=== PATIENT | female | born 1945 | race Caucasian/White ===

== ENCOUNTER 2020-04-21 07:05 | Observation (INO) ==
[2020-04-21 07:56] LABS: Basophils # 0.1 K/mcL (0.0-0.2); Basophils % 0.5 %; Eosinophils # 0.1 K/mcL (0.0-0.6); Eosinophils % 1.1 %; Hematocrit 46.8 % (35.3-44.9); Hemoglobin 14.4 g/dL (11.5-15.4); Immature Granulocytes % 0.6 % (0-4); Lymphocytes # 1.3 K/mcL (0.6-4.6); Lymphocytes % 10.3 %; Mean Corpuscular HGB Conc 30.8 g/dL (31.6-35.5); Mean Corpuscular Hemoglobin 28.6 pg (28.0-33.3); Mean Corpuscular Volume 92.9 fL (83.0-100.0); Mean Platelet Volume 12.4 fL (9.4-12.4); Monocytes # 0.8 K/mcL (0.0-1.3); Neutrophils # 10.5 K/mcL (1.6-8.9); Platelet Count 196 K/mcL (140-400); Red Blood Count 5.04 M/mcL (3.82-4.97); Red Cell Distribution Width 14.4 % (11.5-14.5); Segmented Neutrophils % 81.5 %; White Blood Count 12.9 K/mcL (4.3-11.1)
[2020-04-21 07:57] LABS: Prothrombin Time 11.2 Seconds (9.4-12.1)
[2020-04-21 08:00] LABS: Activated Partial Thrombo Time 29.7 Seconds (26.0-36.0)
[2020-04-21 08:14] LABS: Bilirubin,Urine Negative (Negative); Blood,Urine Negative (Negative); Color,Urine Yellow (Yellow); Glucose,Urine (UA) Normal (Normal); Ketones,Urine Negative (Negative); Leukocyte Esterase,Urine Negative (Negative); Nitrite,Urine Negative (Negative); PH,Urine 6.5 pH Units (5.0-8.0); Protein,Urine 30 mg/dL (Neg-Trace); Specific Gravity,Urine 1.021 (1.010-1.025); Urobilinogen,Urine Normal (Normal)
[2020-04-21 08:17] LABS: Bacteria,Urine None Seen per hpf (None-Few); Hyaline Casts,Urine None Seen per lpf (None-Few); RBC,Urine 0-3 per hpf (0-3); Squamous Epithelial Cell,Urine Moderate per lpf (None-Few); WBC,Urine 0-3 per hpf (0-3)
[2020-04-21 08:18] LABS: Clarity,Urine Clear (Clear)
[2020-04-21 08:24] LABS: Amphetamine Screen,Urine Negative ng/mL (Cutoff=1000); Barbiturate Screen,Urine Negative ng/mL (Cutoff=200); Benzodiazepines Screen,Urine Positive ng/mL (Cutoff=200); Cannabinoid Screen,Urine Negative ng/mL (Cutoff = 50); Cocaine Screen,Urine Negative ng/mL (Cutoff= 300); Opiate Screen,Urine Negative ng/mL (Cutoff=300); Phencyclidine Screen,Urine Negative ng/mL (Cutoff=25)
[2020-04-21 08:29] LABS: Ethanol < 10 mg/dL (Less than 10); Troponin I 0.03 ng/mL (< 0.04)
[2020-04-21 09:10] LABS: ABG Base Excess 0 mEq/L (-2 to 3); ABG HCO3 25 mEq/L (21-27); ABG Oxygen Saturation 94 % (95-98); ABG PCO2 39 mmHg (35-45); ABG PH 7.41 pH Units (7.32-7.45); ABG PO2 70 mmHg (85-104); ABG TCO2 26 mEq/L (20-26)
[2020-04-21 09:14] LABS: Alanine Aminotransferase 52 Units/L (7-52); Albumin 3.9 g/dL (3.5-5.7); Albumin/Globulin Ratio 1.5 (1.1-2.2); Alkaline Phosphatase 48 Units/L (34-104); Aspartate Amino Transferase 23 Units/L (13-39); BUN/Creatinine Ratio 28 (6-26); Bilirubin,Direct 0.2 mg/dL (0.0-0.2); Bilirubin,Indirect 0.6 mg/dL (0.0-1.0); Bilirubin,Total 0.8 mg/dL (0.3-1.0); Blood Urea Nitrogen 16 mg/dL (8-23); Calcium 8.7 mg/dL (8.6-10.3); Carbon Dioxide 24 mEq/L (23-29); Chloride 110 mEq/L (98-107); Globulin 2.6 g/dL (2.4-3.5); Glucose 140 mg/dL (70-105); Osmolality,Calculated 293 (280-300); Potassium 4.1 mEq/L (3.5-5.1); Sodium 140 mEq/L (136-145); Total Protein 6.5 g/dL (6.4-8.9); eGFR For African Americans > 60 (> 60); eGFR For Non-African Americans > 60 (> 60)
[2020-04-21] MEDS ORDERED: Furosemide 40 MG/4 ML VIAL IVP ONE (09:21)
[2020-04-21] MEDS ORDERED: Naloxone 0.4 MG/ML INJ IVP PRN (10:05)
[2020-04-21] MEDS ORDERED: levETIRAcetam 1,000 MG in 0.9 % Sodium Chloride 100 ML IVPB ONE (10:10)
[2020-04-21] MEDS ORDERED: Gadolinium Contrast Agent (WT Based) IV PRN (10:52)
[2020-04-21] MEDS ORDERED: *HR* LORazepam 2 MG/ML VIAL ONE (11:04)
[2020-04-21] MEDS ORDERED: Acetaminophen 325 MG TABLET PO PRN (11:42)
[2020-04-21] MEDS ORDERED: *HR* LORazepam 2 MG/ML VIAL IVP ONE (11:49)
[2020-04-21] MEDS ORDERED: *HR* LORazepam 2 MG/ML VIAL IVP PRN (13:11)
[2020-04-21] MEDS ORDERED: *HR* Heparin 5,000 UNIT/ML VIAL SQ SCH (14:00)
[2020-04-21] MEDS ORDERED: Ibuprofen 600 MG TABLET PO PRN (20:12)
[2020-04-21] MEDS ORDERED: ALPRAZolam 0.25 MG TABLET PO PRN (20:12)
[2020-04-21] MEDS: Carbidopa/Levodopa 25/100 TABLET PO SCH (20:58)
[2020-04-21] MEDS ORDERED: NON-FORMULARY MEDICATION 1 EACH EACH (Calcium Carbonate/Vitamin D3 [Calcium 500-Vit D3 125 PO SCH (21:00)
[2020-04-22 07:03] LABS: Basophils # 0.1 K/mcL (0.0-0.2); Basophils % 0.5 %; Eosinophils # 0.1 K/mcL (0.0-0.6); Eosinophils % 0.9 %; Hematocrit 38.4 % (35.3-44.9); Hemoglobin 12.3 g/dL (11.5-15.4); Immature Granulocytes % 0.6 % (0-4); Lymphocytes # 1.7 K/mcL (0.6-4.6); Lymphocytes % 17.4 %; Mean Corpuscular Hemoglobin 29.2 pg (28.0-33.3); Mean Corpuscular Volume 91.2 fL (83.0-100.0); Mean Platelet Volume 12.6 fL (9.4-12.4); Monocytes # 0.9 K/mcL (0.0-1.3); Monocytes % 9.2 %; Platelet Count 172 K/mcL (140-400); Red Blood Count 4.21 M/mcL (3.82-4.97); Red Cell Distribution Width 14.3 % (11.5-14.5); Segmented Neutrophils % 71.4 %; White Blood Count 9.9 K/mcL (4.3-11.1)
[2020-04-22 09:11] LABS: BUN/Creatinine Ratio 29 (6-26); Blood Urea Nitrogen 16 mg/dL (8-23); Calcium 8.4 mg/dL (8.6-10.3); Carbon Dioxide 26 mEq/L (23-29); Chloride 106 mEq/L (98-107); Glucose 101 mg/dL (70-105); Magnesium 2.1 mg/dL (1.6-2.6); Osmolality,Calculated 289 (280-300); Sodium 139 mEq/L (136-145); eGFR For African Americans > 60 (> 60); eGFR For Non-African Americans > 60 (> 60)
[2020-04-22] MEDS: Carbidopa/Levodopa 25/100 TABLET PO SCH ×2 (09:31→21:38)
[2020-04-22] MEDS: Loratadine 10 MG TABLET PO SCH (09:32)
[2020-04-22] MEDS: Furosemide 40 MG/4 ML VIAL IVP SCH (09:32)
[2020-04-22] MEDS: Cholecalciferol (D-3) 1,000 UNIT (25MCG) TABLET PO SCH (09:32)
[2020-04-22] MEDS: Propranolol LA (24 HR) 80 MG CAP.SA.24H PO SCH (09:37)
[2020-04-22] MEDS: Aspirin Enteric Coated 81 MG Tablet PO SCH (09:37)
[2020-04-22] MEDS: Fluticasone Propionate Nasal 50 MCG/SPRAY BOTTLE NS SCH (09:37)
[2020-04-22] MEDS: levETIRAcetam 250 MG TABLET PO SCH ×2 (15:54→21:38)
[2020-04-23 06:47] LABS: Basophils # 0.1 K/mcL (0.0-0.2); Basophils % 0.8 %; Eosinophils # 0.2 K/mcL (0.0-0.6); Eosinophils % 1.9 %; Hematocrit 39.5 % (35.3-44.9); Hemoglobin 12.6 g/dL (11.5-15.4); Immature Granulocytes % 0.5 % (0-4); Lymphocytes # 1.5 K/mcL (0.6-4.6); Lymphocytes % 19.4 %; Mean Corpuscular HGB Conc 31.9 g/dL (31.6-35.5); Mean Corpuscular Hemoglobin 29.2 pg (28.0-33.3); Mean Corpuscular Volume 91.4 fL (83.0-100.0); Mean Platelet Volume 12.1 fL (9.4-12.4); Monocytes # 0.8 K/mcL (0.0-1.3); Monocytes % 9.6 %; Neutrophils # 5.3 K/mcL (1.6-8.9); Platelet Count 179 K/mcL (140-400); Red Blood Count 4.32 M/mcL (3.82-4.97); Segmented Neutrophils % 67.8 %; White Blood Count 7.8 K/mcL (4.3-11.1)
[2020-04-23 07:03] LABS: BUN/Creatinine Ratio 38 (6-26); Blood Urea Nitrogen 21 mg/dL (8-23); Calcium 8.8 mg/dL (8.6-10.3); Carbon Dioxide 25 mEq/L (23-29); Chloride 106 mEq/L (98-107); Glucose 100 mg/dL (70-105); Magnesium 1.9 mg/dL (1.6-2.6); Osmolality,Calculated 291 (280-300); Phosphorous 2.9 mg/dL (2.7-4.5); Potassium 3.2 mEq/L (3.5-5.1); Sodium 139 mEq/L (136-145); eGFR For African Americans > 60 (> 60); eGFR For Non-African Americans > 60 (> 60)
[2020-04-23] MEDS: Furosemide 40 MG/4 ML VIAL IVP SCH (07:59)
[2020-04-23] MEDS: Cholecalciferol (D-3) 1,000 UNIT (25MCG) TABLET PO SCH (07:59)
[2020-04-23] MEDS: Loratadine 10 MG TABLET PO SCH (07:59)
[2020-04-23] MEDS: Propranolol LA (24 HR) 80 MG CAP.SA.24H PO SCH (08:00)
[2020-04-23] MEDS: levETIRAcetam 250 MG TABLET PO SCH (08:00)
[2020-04-23] MEDS: Fluticasone Propionate Nasal 50 MCG/SPRAY BOTTLE NS SCH (08:00)
[2020-04-23] MEDS: Carbidopa/Levodopa 25/100 TABLET PO SCH (08:00)
[2020-04-23] MEDS: Aspirin Enteric Coated 81 MG Tablet PO SCH (08:00)
[2020-04-23 11:27] VITALS: BP 123/69
== END 2020-04-23 16:32 | disposition home or self-care (01) ==
LOC: EMEROOARM 07:05 → 3BNU 07:05 → SUATTDRO 10:23 → 3BNU 12:20
PROVIDERS: ADMIT Internal Medicine; ATTEND Pharmacist

== ENCOUNTER 2020-07-22 03:16 | Observation (INO) ==
[2020-07-22] MEDS ORDERED: Isovue-370 500 ML BOTTLE IVP ONE (03:31)
[2020-07-22] MEDS ORDERED: Furosemide 40 MG/4 ML VIAL IVP ONE (03:31)
[2020-07-22 04:02] LABS: Basophils # 0.1 K/mcL (0.0-0.2); Basophils % 0.9 %; Eosinophils # 0.2 K/mcL (0.0-0.6); Eosinophils % 1.8 %; Hematocrit 40.1 % (35.3-44.9); Hemoglobin 12.4 g/dL (11.5-15.4); Immature Granulocytes % 0.5 % (0-4); Lymphocytes # 1.3 K/mcL (0.6-4.6); Lymphocytes % 16.4 %; Mean Corpuscular HGB Conc 30.9 g/dL (31.6-35.5); Mean Corpuscular Hemoglobin 28.1 pg (28.0-33.3); Mean Corpuscular Volume 90.7 fL (83.0-100.0); Mean Platelet Volume 12.8 fL (9.4-12.4); Monocytes # 0.6 K/mcL (0.0-1.3); Monocytes % 7.1 %; Platelet Count 175 K/mcL (140-400); Red Blood Count 4.42 M/mcL (3.82-4.97); Red Cell Distribution Width 15.2 % (11.5-14.5); Segmented Neutrophils % 73.3 %; White Blood Count 8.2 K/mcL (4.3-11.1)
[2020-07-22 04:06] LABS: Prothrombin Time 11.5 Seconds (9.4-12.1)
[2020-07-22 04:09] LABS: Activated Partial Thrombo Time 31.7 Seconds (26.0-36.0)
[2020-07-22 04:23] LABS: Bilirubin,Urine Negative (Negative); Blood,Urine Negative (Negative); Clarity,Urine Clear (Clear); Color,Urine Colorless (Yellow); Glucose,Urine (UA) Normal (Normal); Ketones,Urine Negative (Negative); Leukocyte Esterase,Urine Negative (Negative); Nitrite,Urine Negative (Negative); Protein,Urine Negative (Neg-Trace); Specific Gravity,Urine 1.009 (1.010-1.025); Urobilinogen,Urine Normal (Normal)
[2020-07-22 04:25] LABS: BUN/Creatinine Ratio 29 (6-26); Blood Urea Nitrogen 14 mg/dL (8-23); Calcium 9.6 mg/dL (8.6-10.3); Carbon Dioxide 25 mEq/L (23-29); Chloride 110 mEq/L (98-107); Glucose 118 mg/dL (70-105); Osmolality,Calculated 298 (280-300); Potassium 3.5 mEq/L (3.5-5.1); Sodium 143 mEq/L (136-145); eGFR For African Americans > 60 (> 60); eGFR For Non-African Americans > 60 (> 60)
[2020-07-22 04:31] LABS: Troponin I 0.12 ng/mL (< 0.04)
[2020-07-22 05:12] LABS: Adenovirus Not Detected (Not Detect); Bordetella Pertussis Not Detected (Not Detect); Chlamydophila pneumoniae Not Detected (Not Detect); Coronavirus 229E Not Detected (Not Detect); Coronavirus HKU1 Not Detected (Not Detect); Coronavirus NL63 Not Detected (Not Detect); Coronavirus OC43 Not Detected (Not Detect); Human Metapneumovirus Not Detected (Not Detect); Human Rhinovirus/Enterovirus Not Detected (Not Detect); Influenza A Subtype 2009 H1 Not Detected (Not Detect); Influenza B Not Detected (Not Detect); Mycoplasma pneumoniae Not Detected (Not Detect); Parainfluenza Virus 1 Not Detected (Not Detect); Parainfluenza Virus 2 Not Detected (Not Detect); Parainfluenza Virus 3 Not Detected (Not Detect); Parainfluenza Virus 4 Not Detected (Not Detect); Respiratory Syncytial Virus Not Detected (Not Detect); SARS-CoV-2 Not Detected (Not Detect)
[2020-07-22] MEDS ORDERED: *HR* Heparin 5,000 UNIT/ML VIAL IVP ONE (05:13)
[2020-07-22] MEDS ORDERED: *HR* Heparin 5,000 UNIT/ML VIAL IVP PRN ×2 (05:13)
[2020-07-22] MEDS ORDERED: Heparin 25,000UNIT/250ML 1/2NS 25,000 UNIT/250 ML IV.SOLN IVC SCH (05:15)
[2020-07-22] MEDS ORDERED: Ondansetron 4 MG/2 ML VIAL IVP PRN (05:22)
[2020-07-22] MEDS ORDERED: Naloxone 0.4 MG/ML INJ IVP PRN (05:22)
[2020-07-22] MEDS ORDERED: Perflutren Lipid Microsphere 1.3 ML in 0.9 % Sodium Chloride 8.7 ML IVP PRN (05:23)
[2020-07-22] MEDS ORDERED: 0.9 % Sodium Chloride 250 ML ONE (05:39)
[2020-07-22 06:03] LABS: Heparin anti-factor XA UFH < 0.04 IU/mL (0.30-0.70)
[2020-07-22 06:04] LABS: Prothrombin Time 11.3 Seconds (9.4-12.1)
[2020-07-22 06:10] LABS: Hematocrit 39.3 % (35.3-44.9); Hemoglobin 12.3 g/dL (11.5-15.4); Mean Corpuscular HGB Conc 31.3 g/dL (31.6-35.5); Mean Corpuscular Hemoglobin 28.7 pg (28.0-33.3); Mean Corpuscular Volume 91.8 fL (83.0-100.0); Mean Platelet Volume 12.8 fL (9.4-12.4); Platelet Count 180 K/mcL (140-400); Red Blood Count 4.28 M/mcL (3.82-4.97); Red Cell Distribution Width 15.3 % (11.5-14.5); White Blood Count 9.4 K/mcL (4.3-11.1)
[2020-07-22 06:18] LABS: Albumin 4.1 g/dL (3.5-5.7)
[2020-07-22] MEDS: Furosemide 20 MG/2 ML VIAL IVP SCH ×2 (09:00→19:41)
[2020-07-22] MEDS ORDERED: 0.9 % Sodium Chloride 2,000 ML ONE (12:40)
[2020-07-22] MEDS ORDERED: Heparin 1,000 UNITS/500 mL 500 ML ONE (12:40)
[2020-07-22] MEDS ORDERED: Nitroglycerin 1,000 MCG/10 ML VIAL IV ONE (12:40)
[2020-07-22] MEDS ORDERED: *HR* Heparin 10,000 UNIT/10 ML VIAL ONE (12:40)
[2020-07-22] MEDS ORDERED: ISOVUE-370 200 ML INFUS..BTL ONE (12:40)
[2020-07-22] MEDS ORDERED: *HR* Midazolam HCl 2 MG/2 ML VIAL ONE (13:17)
[2020-07-22] MEDS ORDERED: *HR* FentaNYL (PF) 100 MCG/2 ML VIAL ONE (13:17)
[2020-07-22] MEDS: Aspirin Enteric Coated 81 MG Tablet PO SCH (15:20)
[2020-07-22 15:21] LABS: RBC,Pleural Fluid 8000 RBC/mcL
[2020-07-22 15:36] LABS: Appearance of Pleural Fl Hazy (Clear)
[2020-07-22 16:27] LABS: Glucose,Pleural Fluid 129 mg/dL (No Ref Range); LDH,Pleural Fluid 56 Units/L (No Ref Range); Total Protein,Pleural Fluid < 3.0 g/dL
[2020-07-22 16:48] LABS: Basophils,Pleural Fluid 0 %; Eosinophils,Pleural Fluid 0 %
[2020-07-22] MEDS ORDERED: Acetaminophen 325 MG TABLET PO ONE (20:43)
[2020-07-23] MEDS: levETIRAcetam 250 MG TABLET PO SCH ×3 (03:44→20:17)
[2020-07-23] MEDS: Carbidopa/Levodopa 25/100 TABLET PO SCH ×4 (03:44→20:19)
[2020-07-23 06:52] LABS: Basophils # 0.1 K/mcL (0.0-0.2); Basophils % 0.9 %; Eosinophils # 0.1 K/mcL (0.0-0.6); Eosinophils % 1.8 %; Hematocrit 41.3 % (35.3-44.9); Hemoglobin 13.2 g/dL (11.5-15.4); Immature Granulocytes % 0.3 % (0-4); Lymphocytes # 1.3 K/mcL (0.6-4.6); Lymphocytes % 20.1 %; Mean Corpuscular Hemoglobin 29.2 pg (28.0-33.3); Mean Corpuscular Volume 91.4 fL (83.0-100.0); Mean Platelet Volume 12.5 fL (9.4-12.4); Monocytes # 0.5 K/mcL (0.0-1.3); Monocytes % 7.9 %; Neutrophils # 4.5 K/mcL (1.6-8.9); Platelet Count 180 K/mcL (140-400); Red Blood Count 4.52 M/mcL (3.82-4.97); Red Cell Distribution Width 15.3 % (11.5-14.5); White Blood Count 6.6 K/mcL (4.3-11.1)
[2020-07-23 07:14] LABS: BUN/Creatinine Ratio 33 (6-26); Blood Urea Nitrogen 15 mg/dL (8-23); Calcium 8.9 mg/dL (8.6-10.3); Carbon Dioxide 25 mEq/L (23-29); Chloride 105 mEq/L (98-107); Glucose 112 mg/dL (70-105); Magnesium 1.9 mg/dL (1.6-2.6); Osmolality,Calculated 294 (280-300); Sodium 141 mEq/L (136-145); eGFR For African Americans > 60 (> 60); eGFR For Non-African Americans > 60 (> 60)
[2020-07-23] MEDS ORDERED: Carbidopa/Levodopa 25/100 TABLET PO SCH (08:00)
[2020-07-23] MEDS ORDERED: Metoprolol XL (24 HR) Succ 25 MG TAB.ER.24H PO SCH (09:00)
[2020-07-23] MEDS ORDERED: levETIRAcetam 250 MG TABLET PO SCH (09:00)
[2020-07-23] MEDS: Metoprolol XL (24 HR) Succ 25 MG TAB.ER.24H PO SCH (09:13)
[2020-07-23] MEDS: Aspirin Enteric Coated 81 MG Tablet PO SCH (09:13)
[2020-07-23] MEDS: Furosemide 20 MG/2 ML VIAL IVP SCH (09:13)
[2020-07-23] MEDS ORDERED: Furosemide 40 MG TABLET PO SCH (17:00)
[2020-07-23] MEDS ORDERED: ALPRAZolam 0.25 MG TABLET PO PRN (18:14)
[2020-07-23] MEDS: Valsartan 80 MG TABLET PO SCH (20:17)
[2020-07-24 02:17] LABS: Hematocrit 42.7 % (35.3-44.9); Hemoglobin 13.4 g/dL (11.5-15.4); Mean Corpuscular HGB Conc 31.4 g/dL (31.6-35.5); Mean Corpuscular Hemoglobin 28.9 pg (28.0-33.3); Mean Platelet Volume 12.4 fL (9.4-12.4); Platelet Count 204 K/mcL (140-400); Red Blood Count 4.64 M/mcL (3.82-4.97); Red Cell Distribution Width 15.2 % (11.5-14.5); White Blood Count 8.2 K/mcL (4.3-11.1)
[2020-07-24 02:37] LABS: BUN/Creatinine Ratio 48 (6-26); Blood Urea Nitrogen 27 mg/dL (8-23); Carbon Dioxide 24 mEq/L (23-29); Chloride 108 mEq/L (98-107); Glucose 109 mg/dL (70-105); Osmolality,Calculated 294 (280-300); Potassium 4.6 mEq/L (3.5-5.1); Sodium 139 mEq/L (136-145); eGFR For African Americans > 60 (> 60); eGFR For Non-African Americans > 60 (> 60)
[2020-07-24 07:35] VITALS: BP 116/53
[2020-07-24] MEDS: Metoprolol XL (24 HR) Succ 25 MG TAB.ER.24H PO SCH (08:45)
[2020-07-24] MEDS: levETIRAcetam 250 MG TABLET PO SCH (08:45)
[2020-07-24] MEDS: Aspirin Enteric Coated 81 MG Tablet PO SCH (08:45)
[2020-07-24] MEDS: Carbidopa/Levodopa 25/100 TABLET PO SCH (08:45)
[2020-07-24] MEDS: Valsartan 80 MG TABLET PO SCH (08:46)
[2020-07-24] MEDS ORDERED: Furosemide 40 MG TABLET PO SCH (09:00)
[2020-07-24] MEDS ORDERED: Loratadine 10 MG TABLET PO SCH (09:00)
[2020-07-25 10:49] LABS: Fluid Source for Albumin PLEURAL FLUID
== END 2020-07-24 11:30 | disposition home or self-care (01) ==
LOC: 2ANU 03:16 → EMEROOARM 03:16 → 2ANU 06:20
PROVIDERS: ADMIT Family Medicine; ATTEND Family Medicine

== ENCOUNTER 2020-09-13 21:27 | Inpatient (IN) ==
[2020-09-13 22:20] LABS: Basophils # 0.1 K/mcL (0.0-0.2); Eosinophils # 0.3 K/mcL (0.0-0.6); Eosinophils % 2.8 %; Hematocrit 39.4 % (35.3-44.9); Hemoglobin 11.9 g/dL (11.5-15.4); Immature Granulocytes % 0.7 % (0-4); Lymphocytes # 1.3 K/mcL (0.6-4.6); Lymphocytes % 11.7 %; Mean Corpuscular HGB Conc 30.2 g/dL (31.6-35.5); Mean Corpuscular Hemoglobin 27.2 pg (28.0-33.3); Mean Corpuscular Volume 90.2 fL (83.0-100.0); Mean Platelet Volume 12.1 fL (9.4-12.4); Monocytes # 0.7 K/mcL (0.0-1.3); Monocytes % 6.4 %; Neutrophils # 8.7 K/mcL (1.6-8.9); Nucleated Red Blood Cells 0.2 /100 WBC (0); Platelet Count 278 K/mcL (140-400); Red Blood Count 4.37 M/mcL (3.82-4.97); Red Cell Distribution Width 15.7 % (11.5-14.5); Segmented Neutrophils % 77.4 %; White Blood Count 11.3 K/mcL (4.3-11.1)
[2020-09-13 22:29] LABS: INR 1.2; Prothrombin Time 13.4 Seconds (9.4-12.1)
[2020-09-13 22:32] LABS: Activated Partial Thrombo Time 26.8 Seconds (26.0-36.0)
[2020-09-13 22:59] LABS: BUN/Creatinine Ratio 35 (6-26); Blood Urea Nitrogen 25 mg/dL (8-23); Calcium 9.2 mg/dL (8.6-10.3); Carbon Dioxide 21 mEq/L (23-29); Chloride 108 mEq/L (98-107); Glucose 137 mg/dL (70-105); Osmolality,Calculated 297 (280-300); Potassium 4.3 mEq/L (3.5-5.1); Sodium 140 mEq/L (136-145); Troponin I 0.13 ng/mL (< 0.04); eGFR For African Americans > 60 (> 60); eGFR For Non-African Americans > 60 (> 60)
[2020-09-13] MEDS ORDERED: Aspirin 81 MG TAB.CHEW PO ONE (23:15)
[2020-09-13] MEDS ORDERED: Furosemide 40 MG/4 ML VIAL IVP ONE (23:16)
[2020-09-13] MEDS ORDERED: *HR* Heparin 5,000 UNIT/ML VIAL IVP PRN ×2 (23:22)
[2020-09-13] MEDS ORDERED: *HR* Heparin 5,000 UNIT/ML VIAL IVP ONE (23:22)
[2020-09-13 23:27] LABS: Adenovirus Not Detected (Not Detect); Bordetella Pertussis Not Detected (Not Detect); Chlamydophila pneumoniae Not Detected (Not Detect); Coronavirus 229E Not Detected (Not Detect); Coronavirus HKU1 Not Detected (Not Detect); Coronavirus NL63 Not Detected (Not Detect); Coronavirus OC43 Not Detected (Not Detect); Human Metapneumovirus Not Detected (Not Detect); Human Rhinovirus/Enterovirus Not Detected (Not Detect); Influenza A Subtype 2009 H1 Not Detected (Not Detect); Influenza B Not Detected (Not Detect); Mycoplasma pneumoniae Not Detected (Not Detect); Parainfluenza Virus 1 Not Detected (Not Detect); Parainfluenza Virus 2 Not Detected (Not Detect); Parainfluenza Virus 3 Not Detected (Not Detect); Parainfluenza Virus 4 Not Detected (Not Detect); Respiratory Syncytial Virus Not Detected (Not Detect); SARS-CoV-2 Not Detected (Not Detect)
[2020-09-13 23:28] LABS: Bilirubin,Urine Negative (Negative); Blood,Urine Negative (Negative); Clarity,Urine Clear (Clear); Color,Urine Yellow (Yellow); Glucose,Urine (UA) Normal (Normal); Hyaline Casts,Urine Few per lpf (None Seen); Ketones,Urine Negative (Negative); Leukocyte Esterase,Urine Negative (Negative); Mucus,Urine Few per lpf (None-Few); Nitrite,Urine Negative (Negative); Protein,Urine 30 mg/dL (Neg-Trace); RBC,Urine 0-3 per hpf (0-3); Specific Gravity,Urine 1.018 (1.010-1.025); Urobilinogen,Urine Normal (Normal); WBC,Urine 0-3 per hpf (0-3)
[2020-09-13] MEDS ORDERED: Heparin 25,000UNIT/250ML 1/2NS 25,000 UNIT/250 ML IV.SOLN IVC SCH (23:30)
[2020-09-13 23:43] LABS: Heparin anti-factor XA UFH < 0.04 IU/mL (0.30-0.70)
[2020-09-13 23:44] LABS: INR 1.1; Prothrombin Time 12.4 Seconds (9.4-12.1)
[2020-09-13] MEDS ORDERED: Aspirin 81 MG TAB.CHEW ONE (23:58)
[2020-09-14] MEDS ORDERED: Naloxone 0.4 MG/ML INJ IVP PRN (00:40)
[2020-09-14] MEDS ORDERED: Ondansetron 4 MG/2 ML VIAL IVP PRN (00:40)
[2020-09-14 06:03] LABS: INR 1.2; Prothrombin Time 13.9 Seconds (9.4-12.1)
[2020-09-14 06:06] LABS: Basophils # 0.1 K/mcL (0.0-0.2); Eosinophils # 0.3 K/mcL (0.0-0.6); Eosinophils % 3.3 %; Hematocrit 38.1 % (35.3-44.9); Hemoglobin 11.5 g/dL (11.5-15.4); Immature Granulocytes % 0.6 % (0-4); Lymphocytes # 1.9 K/mcL (0.6-4.6); Lymphocytes % 20.6 %; Mean Corpuscular HGB Conc 30.2 g/dL (31.6-35.5); Mean Corpuscular Hemoglobin 27.2 pg (28.0-33.3); Mean Corpuscular Volume 90.1 fL (83.0-100.0); Mean Platelet Volume 12.4 fL (9.4-12.4); Monocytes # 0.8 K/mcL (0.0-1.3); Monocytes % 8.3 %; Neutrophils # 6.2 K/mcL (1.6-8.9); Platelet Count 259 K/mcL (140-400); Red Blood Count 4.23 M/mcL (3.82-4.97); Red Cell Distribution Width 15.9 % (11.5-14.5); Segmented Neutrophils % 66.2 %; White Blood Count 9.4 K/mcL (4.3-11.1)
[2020-09-14 06:30] LABS: Alanine Aminotransferase 56 Units/L (7-52); Albumin 3.2 g/dL (3.5-5.7); Albumin/Globulin Ratio 1.3 (1.1-2.2); Alkaline Phosphatase 79 Units/L (34-104); Aspartate Amino Transferase 30 Units/L (13-39); BUN/Creatinine Ratio 41 (6-26); Bilirubin,Total 0.7 mg/dL (0.3-1.0); Blood Urea Nitrogen 24 mg/dL (8-23); Calcium 8.8 mg/dL (8.6-10.3); Carbon Dioxide 23 mEq/L (23-29); Chloride 108 mEq/L (98-107); Cholesterol 94 mg/dL (< 200); Globulin 2.4 g/dL (2.4-3.5); Glucose 116 mg/dL (70-105); HDL Cholesterol 31 mg/dL (40-59); LDL Cholesterol,Calculated 44 mg/dL (< 100); Osmolality,Calculated 299 (280-300); Potassium 3.7 mEq/L (3.5-5.1); Sodium 142 mEq/L (136-145); Total Protein 5.6 g/dL (6.4-8.9); Triglycerides 96 mg/dL (< 150); Troponin I 0.13 ng/mL (< 0.04); eGFR For African Americans > 60 (> 60); eGFR For Non-African Americans > 60 (> 60)
[2020-09-14] MEDS ORDERED: Metoprolol XL (24 HR) Succ 25 MG TAB.ER.24H PO SCH (09:00)
[2020-09-14] MEDS ORDERED: Furosemide 40 MG/4 ML VIAL IVP SCH ×2 (09:00→21:00)
[2020-09-14] MEDS ORDERED: Furosemide 40 MG/4 ML VIAL IVP ONE (12:05)
[2020-09-14] MEDS: Carbidopa/Levodopa 25/100 TABLET PO SCH ×3 (12:17→20:38)
[2020-09-14] MEDS: levETIRAcetam 250 MG TABLET PO SCH ×2 (12:18→20:38)
[2020-09-14] MEDS: Aspirin Enteric Coated 81 MG Tablet PO SCH (12:18)
[2020-09-14] MEDS: Fluticasone Propionate Nasal 50 MCG/SPRAY BOTTLE NS SCH (12:20)
[2020-09-14] MEDS: ALPRAZolam 0.25 MG TABLET PO PRN (13:27)
[2020-09-14] MEDS: Furosemide 40 MG/4 ML VIAL IVP SCH (20:37)
[2020-09-14] MEDS: Apixaban 5 MG TABLET PO SCH (20:38)
[2020-09-14] MEDS ORDERED: Aspirin 81 MG TAB.CHEW PO ONE (23:15)
[2020-09-15 02:18] LABS: BUN/Creatinine Ratio 35 (6-26); Blood Urea Nitrogen 23 mg/dL (8-23); Carbon Dioxide 21 mEq/L (23-29); Chloride 106 mEq/L (98-107); Glucose 85 mg/dL (70-105); Magnesium 1.5 mg/dL (1.6-2.6); Osmolality,Calculated 295 (280-300); Phosphorous 1.9 mg/dL (2.7-4.5); Potassium 3.3 mEq/L (3.5-5.1); Sodium 141 mEq/L (136-145); eGFR For African Americans > 60 (> 60); eGFR For Non-African Americans > 60 (> 60)
[2020-09-15] MEDS: Nitroglycerin 0.4 MG TAB.SUBL SL SCH ×2 (02:53→03:01)
[2020-09-15] MEDS: levETIRAcetam 250 MG TABLET PO SCH ×2 (08:25→20:27)
[2020-09-15] MEDS: Aspirin Enteric Coated 81 MG Tablet PO SCH (08:25)
[2020-09-15] MEDS: Apixaban 5 MG TABLET PO SCH ×2 (08:25→20:27)
[2020-09-15] MEDS: Fluticasone Propionate Nasal 50 MCG/SPRAY BOTTLE NS SCH (08:26)
[2020-09-15] MEDS: Furosemide 40 MG/4 ML VIAL IVP SCH ×3 (08:26→18:18)
[2020-09-15] MEDS: Carbidopa/Levodopa 25/100 TABLET PO SCH ×3 (08:31→20:27)
[2020-09-15] MEDS: ALPRAZolam 0.25 MG TABLET PO PRN (22:37)
[2020-09-16 01:00] LABS: Hematocrit 40.5 % (35.3-44.9); Hemoglobin 11.8 g/dL (11.5-15.4); Mean Corpuscular HGB Conc 29.1 g/dL (31.6-35.5); Mean Corpuscular Hemoglobin 27.1 pg (28.0-33.3); Mean Corpuscular Volume 93.1 fL (83.0-100.0); Mean Platelet Volume 12.1 fL (9.4-12.4); Platelet Count 221 K/mcL (140-400); Red Blood Count 4.35 M/mcL (3.82-4.97); Red Cell Distribution Width 15.9 % (11.5-14.5); White Blood Count 9.2 K/mcL (4.3-11.1)
[2020-09-16 01:21] LABS: BUN/Creatinine Ratio 47 (6-26); Blood Urea Nitrogen 24 mg/dL (8-23); Calcium 7.8 mg/dL (8.6-10.3); Carbon Dioxide 25 mEq/L (23-29); Chloride 105 mEq/L (98-107); Glucose 113 mg/dL (70-105); Magnesium 2.3 mg/dL (1.6-2.6); Osmolality,Calculated 295 (280-300); Potassium 3.7 mEq/L (3.5-5.1); Sodium 140 mEq/L (136-145); eGFR For African Americans > 60 (> 60); eGFR For Non-African Americans > 60 (> 60)
[2020-09-16] MEDS: Furosemide 40 MG/4 ML VIAL IVP SCH ×3 (03:02→18:07)
[2020-09-16] MEDS: Apixaban 5 MG TABLET PO SCH ×2 (08:10→20:04)
[2020-09-16] MEDS: levETIRAcetam 250 MG TABLET PO SCH ×2 (08:10→20:04)
[2020-09-16] MEDS: Fluticasone Propionate Nasal 50 MCG/SPRAY BOTTLE NS SCH (08:10)
[2020-09-16] MEDS: Aspirin Enteric Coated 81 MG Tablet PO SCH (08:10)
[2020-09-16] MEDS: Carbidopa/Levodopa 25/100 TABLET PO SCH ×3 (08:13→20:04)
[2020-09-16] MEDS ORDERED: *HR* FentaNYL (PF) 100 MCG/2 ML VIAL IVP PRN (13:26)
[2020-09-16] MEDS ORDERED: 0.9 % Sodium Chloride 500 ML IVC ONE (13:26)
[2020-09-16] MEDS ORDERED: Lidocaine Viscous Oral Soln 15 ML SOLUTION MM PRN (13:26)
[2020-09-16] MEDS ORDERED: *HR* Midazolam HCl 2 MG/2 ML VIAL IVP PRN (13:26)
[2020-09-16] MEDS ORDERED: *HR* Midazolam HCl 5 MG/5 ML VIAL IVP ONE ×2 (13:56→13:57)
[2020-09-16] MEDS ORDERED: *HR* Digoxin 0.5 MG/2 ML AMPUL IVP SCH (14:57)
[2020-09-16] MEDS ORDERED: *HR* Digoxin 0.5 MG/2 ML AMPUL IVP ONE (15:30)
[2020-09-16] MEDS: ALPRAZolam 0.25 MG TABLET PO PRN (19:07)
[2020-09-17] MEDS: Furosemide 40 MG/4 ML VIAL IVP SCH ×2 (02:37→15:18)
[2020-09-17 08:37] LABS: BUN/Creatinine Ratio 58 (6-26); Blood Urea Nitrogen 35 mg/dL (8-23); Calcium 8.2 mg/dL (8.6-10.3); Carbon Dioxide 22 mEq/L (23-29); Chloride 105 mEq/L (98-107); Glucose 153 mg/dL (70-105); Osmolality,Calculated 297 (280-300); Potassium 3.8 mEq/L (3.5-5.1); Sodium 138 mEq/L (136-145); eGFR For African Americans > 60 (> 60); eGFR For Non-African Americans > 60 (> 60)
[2020-09-17] MEDS: *HR* Digoxin 0.5 MG/2 ML AMPUL IVP SCH ×2 (08:50→20:15)
[2020-09-17] MEDS: Apixaban 5 MG TABLET PO SCH ×2 (08:51→20:15)
[2020-09-17] MEDS: levETIRAcetam 250 MG TABLET PO SCH ×2 (08:51→20:15)
[2020-09-17] MEDS: Aspirin Enteric Coated 81 MG Tablet PO SCH (08:52)
[2020-09-17] MEDS ORDERED: *HR* Digoxin 0.25 MG TABLET PO SCH (09:00)
[2020-09-17] MEDS: Fluticasone Propionate Nasal 50 MCG/SPRAY BOTTLE NS SCH (09:06)
[2020-09-17] MEDS: Carbidopa/Levodopa 25/100 TABLET PO SCH ×3 (09:34→20:45)
[2020-09-17] MEDS: Metoprolol XL (24 HR) Succ 25 MG TAB.ER.24H PO SCH (13:04)
[2020-09-18 02:34] LABS: Hematocrit 41.4 % (35.3-44.9); Hemoglobin 12.7 g/dL (11.5-15.4); Mean Corpuscular HGB Conc 30.7 g/dL (31.6-35.5); Mean Corpuscular Hemoglobin 27.8 pg (28.0-33.3); Mean Corpuscular Volume 90.6 fL (83.0-100.0); Platelet Count 234 K/mcL (140-400); Red Blood Count 4.57 M/mcL (3.82-4.97); Red Cell Distribution Width 15.7 % (11.5-14.5); White Blood Count 8.2 K/mcL (4.3-11.1)
[2020-09-18 02:53] LABS: BUN/Creatinine Ratio 69 (6-26); Blood Urea Nitrogen 33 mg/dL (8-23); Calcium 8.4 mg/dL (8.6-10.3); Carbon Dioxide 24 mEq/L (23-29); Chloride 105 mEq/L (98-107); Glucose 101 mg/dL (70-105); Osmolality,Calculated 291 (280-300); Sodium 137 mEq/L (136-145); eGFR For African Americans > 60 (> 60); eGFR For Non-African Americans > 60 (> 60)
[2020-09-18 07:07] VITALS: BP 103/63
[2020-09-18] MEDS: Metoprolol XL (24 HR) Succ 25 MG TAB.ER.24H PO SCH (07:59)
[2020-09-18] MEDS: Aspirin Enteric Coated 81 MG Tablet PO SCH (07:59)
[2020-09-18] MEDS: levETIRAcetam 250 MG TABLET PO SCH (07:59)
[2020-09-18] MEDS: Apixaban 5 MG TABLET PO SCH (07:59)
[2020-09-18] MEDS: Fluticasone Propionate Nasal 50 MCG/SPRAY BOTTLE NS SCH (08:00)
[2020-09-18] MEDS: Carbidopa/Levodopa 25/100 TABLET PO SCH (08:04)
[2020-09-18] MEDS ORDERED: Furosemide 40 MG/4 ML VIAL IVP SCH (09:00)
[2020-09-18] MEDS ORDERED: *HR* Digoxin 0.125 MG TABLET PO SCH (09:00)
[2020-09-19] MEDS ORDERED: *HR* Digoxin 0.125 MG TABLET PO SCH (09:00)
== END 2020-09-18 11:42 | disposition home health service (06) | DRG 292 ==
LOC: EMEROOARM 21:27 → 3BNU 21:27 → SUATTDRO 09-14 00:04 → 3BNU 09-14 00:45
PROVIDERS: ADMIT Family Medicine; ATTEND Student in an Organized Health Care Education/Training Program